=== PATIENT | female | born 1975 | race Caucasian/White ===

== ENCOUNTER 2019-09-06 22:59 | Emergency (ER) | payer OTHER ==
[~2019-09-06] VITALS: Ht 162.6 cm; Wt 63.5 kg
[~2019-09-06 22:59] MED LIST: ACETAMINOPHEN-1 EAC1; ACETAMINOPHEN-1 EAC1 PO; CLEOCIN HCL150 MG PO; DOXYCYCLINE 10100 MG PO; HYDROCODONE-AP1 EAC6 PO; LEVOTHYROXIN0.075 MG PO; LEVOTHYROXINE; NORCO 5-325 TA1 EACH PO; ROBAXIN 750 MG750 M1 PO
[2019-09-06] MEDS ORDERED: PRINIVIL20 M1 PO (23:09)
[2019-09-07] MEDS ORDERED: IMITREX 25 MG T25 M1 PO (00:39)
[2019-09-07 00:47] VITALS: BP 127/85
== END 2019-09-07 00:47 | disposition home or self-care (01) ==
LOC: M.ERS 22:59
DX: G43.909 Migraine, unspecified, not intractable, without status migrainosus (principal); I10 Essential (primary) hypertension; Z90.89 Acquired absence of other organs; F17.200 Nicotine dependence, unspecified, uncomplicated; Z88.1 Allergy status to other antibiotic agents; Z88.0 Allergy status to penicillin